=== PATIENT | male | born 1940 | race Caucasian/White ===

== ENCOUNTER 2020-04-22 08:14 | Day surgery (SDC) | payer MEDICARE ==
[~2020-04-22] VITALS: Ht 172.7 cm; Wt 71.8 kg
[~2020-04-22 08:14] MED LIST: ALEN70 PO; ASCO500 PO; CALACE667G PO; CYAN1000 PO; Coq-1030 MG PO; Coumadin7.5 MG PO; EPA-DHA 720 SO1 EACH PO; FISH1000 PO; LEVSOD50 PO; LORA1 PO; MAGNESIUM GLU27.5 M1 PO; MAGNESIUM OXID500 MG PO; MULTI VITAMIN1 EACH PO; Synthroid300 MCG PO; TAMS.4ER PO; THYROID PO; TOCO400 PO; VITAMIN D35000 UNIT PO; WARF10 PO; WARF5 PO
--- NOTE | 2020-04-22 11:24 | NUR ---
FOLLOWED PT BACK TO RECOVERY ROOM. PT VS STABLE, SITE AT FISTULA STABLE.
--- NOTE | 2020-04-22 12:18 | NUR ---
L LOWER ARM SUTURES REMOVED FROM FISTULA. -BLEEDING OR SWELLING. DOT CLOTH DRSG PLACED. PT VERBALIZED UNDERSTANDING OF WRITTEN AND VERBAL D/C INST. IV REMOVED.
== END 2020-04-22 12:20 | disposition home or self-care (01) ==
LOC: MHTC 08:14
DX: Z49.01 Encounter for fitting and adjustment of extracorporeal dialysis catheter (principal); I12.0 Hypertensive chronic kidney disease with stage 5 chronic kidney disease or end stage renal disease; N18.6 End stage renal disease; D63.1 Anemia in chronic kidney disease; I48.91 Unspecified atrial fibrillation; N40.0 Benign prostatic hyperplasia without lower urinary tract symptoms; M85.80 Other specified disorders of bone density and structure, unspecified site; E78.5 Hyperlipidemia, unspecified; Z79.899 Other long term (current) drug therapy
CPT/HCPCS: 36902; 76937; 99152; 99153; C1725; C1769; C1894; J1644; J2250; J3010; J7030; J7040; Q9967

== ENCOUNTER 2020-07-19 09:02 | Day surgery (SDC) | payer MEDICARE ==
[~2020-07-19] VITALS: Ht 175.3 cm; Wt 70.5 kg
[~2020-07-19 09:02] MED LIST changes: +EUTHYROX50 MCG PO; +OXYC5 PO
[2020-07-19] MEDS ORDERED: Aspir 8181 MG PO (09:34)
--- NOTE | 2020-07-19 10:57 | NUR ---
SPOKE WITH FOREST OFFICER AT [facility] AND TRYING TO SCHEDULE PATIENT FOR A SHORT DIALYSIS SESSION TODAY TO REMOVED THE DYE LOAD THAT WAS GIVEN TO HIM DURING THE HEART CATH. [facility] HAS AN OPENING AT [address]. NOTIF[address] DR[address] MARTÍNEZ AND PATIENT AND HIS DAUGHTER (RAMIRO).
--- NOTE | 2020-07-19 12:19 | NUR ---
ASSUMED CARE FROM [facility], RIGHT AC VENOUS SITE REBLEED AND MANUAL PRESSURE HELD FOR 10 MINUTES AND PRESSURE DRESSING REPLACED. PATIENT SITTING IN RECLINER, ON MONITOR AND LUNCH TRAY SERVED. CONTINUE TO MONITOR.
--- NOTE | 2020-07-19 12:31 | NUR ---
DAUGHTER AT THE BEDSIDE AND BEGAN TAKING AIR OUT OF THE TR BAND. 4 ML REMOVED OVER 5 MINUTES AND BLEEDING NOTED. REPLACED THE AIR AND RESTARTED TIME. UPDATED DAUGHTER THAT THE PATIENT WILL NEED TO GO TO [facility] LATER TODAY FOR A SHORTER DIALYSIS SESSION.
--- NOTE | 2020-07-19 13:15 | NUR ---
ATTEMPTED TO RELEASE AIR FROM TR BAND. BLEEDING NOTED. REINFLATED WITH AIR. NO BLEEDING NOTED. WILL CONTINUE TO MONITOR.
--- NOTE | 2020-07-19 13:25 | NUR ---
RE-RELEASED AIR FROM THE TR BAND NO BLEEDING NOTED AT THIS TIME. WILL CONTINUE TO MONITOR.
--- NOTE | 2020-07-19 14:05 | NUR ---
TR BAND FLAT, NO BLEEDING NOTED. REVIEWED DISCHARGE INSTRUCTIONS WITH PATIENT AND DAUGHTER. VVS. NIBP WAS ON THE RIGHT ANKLE (THIS WAS HIGHER NIBP'S THAT THE WRIST. PATIENT UP AND DRESSED SELF. DISCONTINUED PIV TO THE RIGHT FOREARM. TR BAND REMOVED AFTER 30 MINUTES FLAT AND SITE CLEANED. PRESSURE DRESSING APPLIED TO BOTHE THE PIV AND THE RIGHT RADIAL SITE. PATIENT STATED THAT HE BLEEDS POST DIALYSIS ALL THE TIME. SO FOR PROCEAUTION PRESSURE BANDAGE APPLIED. 1410 PATIENT VERBALIZED FULL UNDERSTANDING OF DISCHARGE INSTRUCTIONS AND THAT [facility] TAVR TEAM WILL BE CALLING HIM THIS WEEK REGARDING HIS NEXT APPOINTMENT TO HAVE TAVR PERFORMED. NO PAIN NOTED. AMBULATORY TO THE WHEEL CHAIR AND DISCHARGED HOME. DAUGHTER IS DOT NET DEVELOPER.
== END 2020-07-19 14:00 | disposition home or self-care (01) ==
LOC: MHTC 09:02
DX: I08.3 Combined rheumatic disorders of mitral, aortic and tricuspid valves (principal); I48.20 Chronic atrial fibrillation, unspecified; I27.20 Pulmonary hypertension, unspecified; I77.819 Aortic ectasia, unspecified site; I13.11 Hypertensive heart and chronic kidney disease without heart failure, with stage 5 chronic kidney disease, or end stage renal disease; N18.6 End stage renal disease; E78.5 Hyperlipidemia, unspecified; E03.9 Hypothyroidism, unspecified; F10.10 Alcohol abuse, uncomplicated; Z99.2 Dependence on renal dialysis
CPT/HCPCS: 93454; C1769; C1894; J1644; J2250; J3010; J7030; J7040; J7050; Q9967

== ENCOUNTER 2020-11-16 15:52 | Observation (INO) | payer MEDICARE ==
[~2020-11-16] VITALS: Ht 172.7 cm; Wt 64.4 kg
[~2020-11-16 15:52] MED LIST changes: +Aspir 8181 MG PO
[2020-11-16 16:39] LABS: BASOPHILS ABSOLUTE AUTO 0.03 K/mm3 (0.00-0.23); BASOPHILS PERCENT AUTO 0 % (0-2); EOSINOPHILS ABSOLUTE AUTO 0.09 K/mm3 (0.00-0.68); EOSINOPHILS PERCENT AUTO 1 % (0-6); Hematocrit 27.9 % (37.0-53.0); Hemoglobin 9.5 g/dL (13.5-17.5); IMMATURE GRAN ABSOLUTE AUTO 0.12 K/mm3 (0.00-0.10); IMMATURE GRAN PERCENT AUTO 1 % (0-1); LYMPHOCYTES ABSOLUTE AUTO 1.22 K/mm3 (0.84-5.20); LYMPHOCYTES PERCENT AUTO 12 % (21-46); MONOCYTES ABSOLUTE AUTO 0.81 K/mm3 (0.16-1.47); MONOCYTES PERCENT AUTO 8 % (4-13); Mean Corpuscular HGB 34.1 pg (26.0-34.0); Mean Corpuscular HGB Conc 34.1 g/dL (31.5-36.5); Mean Corpuscular Volume 100 fL (80-100); Mean Platelet Volume 12.4 fL (9.1-12.4); NEUTROPHILS ABSOLUTE AUTO 8.26 K/mm3 (1.96-9.15); NEUTROPHILS PERCENT AUTO 78 % (41-73); NRBC ABSOLUTE 0.15 K/mm3 (0.00-0.02); NRBC Auto 1.4 /100 WBC (0.0-0.2); Platelet Count 254 K/mm3 (150-400); RDW Coefficient Variation 17.2 % (11.7-14.2); RDW Standard Deviation 55.3 fL (35.1-46.3); Red Blood Cell Count 2.79 M/mm3 (4.30-5.90); White Blood Cell Count 10.53 K/mm3 (4.00-11.30)
[2020-11-16 16:59] LABS: Albumin, Blood 3.5 g/dL (3.4-5.0); Albumin/Globulin Ratio 0.8 (0.8-1.8); Bilirubin, Total 1.9 mg/dL (0.1-1.0); Bun/Creatinine Ratio 9.3 (12.0-20.0); Calcium, Blood 9.6 mg/dL (8.5-10.1); Creatinine, Blood 2.47 mg/dL (0.60-1.20); Globulin, Blood 4.3 g/dL (2.2-4.0); Potassium, Blood 3.5 mmol/L (3.5-5.5); Total Protein, Blood 7.8 g/dL (6.4-8.2)
[2020-11-16 17:15] LABS: Troponin I 0.605 ng/mL (0.000-0.040)
[2020-11-16] MEDS ORDERED: CLOP75 PO (18:07)
[2020-11-16] MEDS ORDERED: RENVELA800 MG PO (19:31)
--- NOTE | 2020-11-16 21:43 | NUR ---
ADMIT NOTE HANDOFF RECEIVED FROM [facility]ENTER MANAGER BILLIE. PT ARRIVED TO FLOOR VIA GURNEY. TELEMETRY MONITORING: AFIB @ 78 BPM. PT ORIENTED TO UNIT. CALL BUTTON WITHIN REACH.
--- NOTE | 2020-11-17 04:17 | NUR ---
SHIFT SUMMARY ADMITTED FROM ER FOR ELEVATED TROPONINS THIS SHIFT. FULL CODE. DIALYSIS PT. PLAN IS FOR CARDIOLOGY TO CONSULT. TELEMETRY: AFIB W/BBB @ 78 BPM. ECHO ORDERED FOR TODAY. RECENTLY HAD A HEART VALVE REPLACED. SERIAL TROPONIN LABS HAVE PEAKED AND ARE TRENDING DOWN. HE DENIES CHEST PAIN, BUT HE DOES GET SOB W/EXERTION. HE STATES IT IS NORMAL FOR HIM TO HAVE SOFT BP'S AT NIGHT.
[2020-11-17 08:11] LABS: Bun/Creatinine Ratio 10.5 (12.0-20.0); Calcium, Blood 8.8 mg/dL (8.5-10.1); Creatinine, Blood 3.51 mg/dL (0.60-1.20); Potassium, Blood 3.1 mmol/L (3.5-5.5)
[2020-11-17 08:20] LABS: Troponin I 0.506 ng/mL (0.000-0.040)
== END 2020-11-17 17:25 | disposition home or self-care (01) ==
LOC: ER 15:52 → MEDS 15:53 → ERHOLD 15:53 → MEDS 20:47
PROVIDERS: Family Medicine; Physician Assistant; ADMIT Internal Medicine
DX: R79.89 Other specified abnormal findings of blood chemistry (principal); I48.20 Chronic atrial fibrillation, unspecified; E03.9 Hypothyroidism, unspecified; I44.7 Left bundle-branch block, unspecified; N32.0 Bladder-neck obstruction; N18.9 Chronic kidney disease, unspecified; N40.0 Benign prostatic hyperplasia without lower urinary tract symptoms; I25.10 Atherosclerotic heart disease of native coronary artery without angina pectoris; G47.00 Insomnia, unspecified; M85.80 Other specified disorders of bone density and structure, unspecified site; I08.3 Combined rheumatic disorders of mitral, aortic and tricuspid valves; Z79.01 Long term (current) use of anticoagulants; Z99.2 Dependence on renal dialysis; Z95.2 Presence of prosthetic heart valve
CPT/HCPCS: 36415; 71046; 80048; 80053; 83880; 84443; 84484; 85025; 93005; 93010; 93306; 99285-25; A9270; G0378

== ENCOUNTER → 2021-04-21 | Outpatient (CLI) | payer MEDICARE ==
[~2021-04-21] MED LIST changes: +CLOP75 PO; +RENVELA800 MG PO
== END | disposition home or self-care (01) ==
LOC: LAB SHORT 17:55 → LAB 17:55
DX: R35.0 Frequency of micturition (principal)
CPT/HCPCS: 87077; 87086; 87186

== ENCOUNTER → 2021-05-23 | Outpatient (CLI) | payer MEDICARE | END | disposition home or self-care (01) | LOC: LAB SHORT 13:15 | DX: N30.01 Acute cystitis with hematuria (principal) | CPT/HCPCS: 87077; 87086; 87186 ==

== ENCOUNTER 2022-01-04 06:48 | Day surgery (SDC) | payer MEDICARE ==
[~2022-01-04] VITALS: Ht 172.7 cm; Wt 71.0 kg
--- NOTE | 2022-01-04 10:25 | NUR ---
PT PURSED STRINGS REMOVED FROM L SIDED FISTULA. DOT DRESSING APPLIED. NO BLEEDING NOTED. VSS. NADN. PT VERBALIZES UNDERSTANDING WRITTEN AND VERBAL INSTRUCTIONS. IV DC'D. CATH INTACT. PRESSURE DSG APPLIED. PT DC TO HOME VIA WC BY DTR.
== END 2022-01-04 11:03 | disposition home or self-care (01) ==
LOC: MHTC 06:48
DX: T82.858D Stenosis of other vascular prosthetic devices, implants and grafts, subsequent encounter (principal); I12.0 Hypertensive chronic kidney disease with stage 5 chronic kidney disease or end stage renal disease; N18.6 End stage renal disease; I48.91 Unspecified atrial fibrillation; E03.9 Hypothyroidism, unspecified; Z79.02 Long term (current) use of antithrombotics/antiplatelets; Z79.899 Other long term (current) drug therapy
CPT/HCPCS: 36902; 76937; 99152; 99153; C1725; C1887; C1894; C2623; J1644; J2250; J3010; J7030; J7040; Q9967

== ENCOUNTER → 2022-10-19 | Outpatient (CLI) | payer OTHER ==
[2022-10-19 19:51] LABS: Albumin, Blood 3.4 g/dL (3.4-5.0); Bilirubin, Total 1.2 mg/dL (0.1-1.0); Bun/Creatinine Ratio 5.4 (12.0-20.0); Calcium, Blood 8.8 mg/dL (8.5-10.1); Creatinine, Blood 2.4 mg/dL (0.60-1.20); Free Thyroxine 1.09 ng/dL (0.70-1.60); Globulin, Blood 3.4 g/dL (2.2-4.0); Potassium, Blood 3.5 mmol/L (3.5-5.5); Thyroid Stimulating Hormone 3.46 uIU/mL (0.360-4.800); Total Protein, Blood 6.8 g/dL (6.4-8.2); Triiodothyronine, Free 2.07 pg/mL (2.18-3.98)
== END ==
LOC: LAB SHORT 17:33
PROVIDERS: Hospitalist
DX: N18.6 End stage renal disease (principal); E03.9 Hypothyroidism, unspecified; R60.9 Edema, unspecified
CPT/HCPCS: 80053; 83880; 84439; 84443; 84481